=== PATIENT | female | born 1980 | race Two or more races ===

== ENCOUNTER 2019-03-04 20:57 | Inpatient (IN) | payer MEDICAID ==
[~2019-03-04] VITALS: Ht 182.9 cm; Wt 108.4 kg
[2019-03-04] MEDS ORDERED: ONDANSETRON HCL 4MG/2ML INJ IV STA (23:20)
[2019-03-04] MEDS ORDERED: SODIUM CHLORIDE 0.9% 1,000 ML IV ONE (23:20)
[2019-03-04] MEDS ORDERED: MORPHINE SULFATE 4 MG/ML CPJ (NOT FOR IM USE) IV STA (23:20)
[2019-03-04] MEDS ORDERED: ACETAMINOPHEN 325MG TABLET PO STA (23:20)
[2019-03-04] MEDS ORDERED: CEFTRIAXONE 1 G PREMIX 50 ML IV ONE (23:30)
[2019-03-04] MEDS ORDERED: AZITHROMYCIN 500 MG in DEXT 5% WATER 250 ML IV ONE (23:30)
[2019-03-04 23:54] LABS: BASOPHILS % 0.4 % (0.0-2.0); EOSINOPHILS % 1.9 % (0.0-5.0); HEMATOCRIT. 31.2 % (36.0-48.0); HEMOGLOBIN. 10.2 g/dL (12.0-16.0); LYMPHOCYTES % 21.4 % (20.0-50.0); MEAN CORPUSCULAR HEMOGLOBIN 27.3 pg (28.0-32.0); MEAN CORPUSCULAR VOLUME 83.8 fL (81.0-99.0); MEAN PLATELET VOLUME 7.1 fl (7.4-10.4); MONOCYTES % 4.2 % (2.0-8.0); NEUTROPHILS % 72.1 % (40.0-76.0); PLATELET 321 x1000/uL (130-400); RED BLOOD CELL COUNT 3.72 mill/uL (4.2-5.4)
[2019-03-05 00:08] LABS: CHLORIDE 103 mEq/L (98-107)
[2019-03-05 00:13] LABS: PROTHROMBIN TIME 9.9 sec (9.6-11.0)
[2019-03-05 03:21] LABS: CLARITY URINE CLEAR (CLEAR); COLOR URINE YELLOW (YELLOW); KETONES URINE NEGATIVE (NEGATIVE); LEUKOCYTE ESTERASE URINE 2+ (NEGATIVE); NITRITE URINE NEGATIVE (NEGATIVE); OCCULT BLOOD URINE NEGATIVE (NEGATIVE); PH URINE 6.5 (4.5-8.0); PROTEIN URINE NEGATIVE (NEGATIVE); SPECIFIC GRAVITY URINE 1.009 (1.005-1.030); UROBILINOGEN URINE 0.2 E.U./dL (0.2-1.0)
[2019-03-05 03:49] LABS: *BARBITURATES SCREEN URINE NEGATIVE (NEGATIVE)
[2019-03-05 03:50] LABS: *BENZODIAZEPINES SCREEN URINE NEGATIVE (NEGATIVE); *COCAINE SCREEN URINE NEGATIVE (NEGATIVE); CANNABINOID URINE SCREEN NEGATIVE (NEGATIVE); METHADONE URINE SCREEN NEGATIVE (NEGATIVE); PHENCYCLIDINE URINE SCREEN NEGATIVE (NEGATIVE)
[2019-03-05 03:53] LABS: *AMPHETAMINES SCREEN URINE PRESUMTIVE POSITIVE (NEGATIVE); OPIATES URINE SCREEN PRESUMTIVE POSITIVE (NEGATIVE)
[2019-03-05] MEDS: HYDROCODONE/ACETAMINOPHEN 5/325MG TABLET PO PRN ×3 (07:53→22:48)
[2019-03-05 08:00] VITALS: BP 107/74
[2019-03-05] MEDS ORDERED: CEFTRIAXONE 1 G PREMIX 50 ML IV SCH (09:00)
[2019-03-05] MEDS ORDERED: SODIUM CHLORIDE 0.9% 1,000 ML IV SCH (09:00)
[2019-03-05] MEDS ORDERED: ACETAMINOPHEN 325MG TABLET PO PRN (09:00)
[2019-03-05] MEDS ORDERED: ZOLPIDEM TARTRATE 5MG TABLET PO PRN (09:00)
[2019-03-05] MEDS: METHYLPREDNISOLONE SOD SUCC 40 MG/ML VIAL IV SCH ×2 (09:58→16:54)
[2019-03-05 10:23] VITALS: BP 107/74
[2019-03-05] MEDS ORDERED: OMEP20CA5 PO (11:03)
[2019-03-05] MEDS ORDERED: LOSA100T32 PO (11:03)
[2019-03-05] MEDS ORDERED: PRED-276 PO (11:03)
[2019-03-05] MEDS ORDERED: FURO-152 PO (11:03)
[2019-03-05] MEDS ORDERED: TRAM50TA3 PO (11:03)
[2019-03-05] MEDS ORDERED: HYDR200T80 PO (11:03)
[2019-03-05] MEDS ORDERED: CARV6.2548 PO (11:03)
[2019-03-05 12:00] VITALS: BP 118/74
[2019-03-05] MEDS ORDERED: MORPHINE SULFATE 2 MG/ML CPJ (NOT FOR IM USE) IV PRN (15:45)
[2019-03-05 16:00] VITALS: BP 133/90
[2019-03-05] MEDS ORDERED: TRAMADOL 50MG TABLET PO PRN (19:30)
[2019-03-05 20:00] VITALS: BP 121/76
[2019-03-05] MEDS: DICLOFENAC SODIUM 75MG DR (EC) TABLET PO SCH (22:16)
[2019-03-05] MEDS ORDERED: CEFTRIAXONE 1,000 MG in DEXTROSE 5% WATER 50 ML IV SCH (23:30)
[2019-03-06] VITALS: BP 128/78
[2019-03-06] MEDS: METHYLPREDNISOLONE SOD SUCC 40 MG/ML VIAL IV SCH ×2 (00:30→09:22)
[2019-03-06 04:00] VITALS: BP 140/85
[2019-03-06] MEDS ORDERED: OMEPRAZOLE 20MG CAPSULE EXTENDED RELEASE PO SCH (07:20)
[2019-03-06 08:01] LABS: BASOPHILS % 0.2 % (0.0-2.0); HEMATOCRIT. 32.9 % (36.0-48.0); HEMOGLOBIN. 10.9 g/dL (12.0-16.0); LYMPHOCYTES % 19.7 % (20.0-50.0); MEAN CORPUSCULAR HEMOGLOBIN 27.6 pg (28.0-32.0); MEAN CORPUSCULAR VOLUME 83.6 fL (81.0-99.0); MEAN PLATELET VOLUME 7.6 fl (7.4-10.4); MONOCYTES % 2.5 % (2.0-8.0); NEUTROPHILS % 77.6 % (40.0-76.0); PLATELET 338 x1000/uL (130-400); RED BLOOD CELL COUNT 3.93 mill/uL (4.2-5.4); RED CELL DISTRIBUTION WIDTH 16.7 % (11.6-14.6)
[2019-03-06 08:22] LABS: CHLORIDE 106 mEq/L (98-107)
[2019-03-06] MEDS ORDERED: FOLIC ACID 1MG TABLET PO SCH (09:00)
[2019-03-06] MEDS ORDERED: TRIAMCINOLONE ACETONIDE 0.1% CREAM 15GM TOP SCH (09:00)
[2019-03-06] MEDS ORDERED: LOSARTAN POTASSIUM 100 MG TABLET PO SCH (09:00)
[2019-03-06] MEDS ORDERED: CARVEDILOL 6.25 MG TABLET PO SCH (09:00)
[2019-03-06] MEDS ORDERED: HYDROXYCHLOROQUINE SULFATE 200MG TABLET PO SCH (09:00)
[2019-03-06] MEDS ORDERED: FUROSEMIDE 20MG TABLET PO SCH (09:00)
[2019-03-06] MEDS ORDERED: METHOTREXATE SODIUM 2 . 5MG TABLET PO SCH (09:00)
[2019-03-06 09:36] VITALS: BP 153/84
[2019-03-06] MEDS: DICLOFENAC SODIUM 75MG DR (EC) TABLET PO SCH (09:36)
[2019-03-06] MEDS: HYDROCODONE/ACETAMINOPHEN 5/325MG TABLET PO PRN (09:36)
[2019-03-07 13:10] LABS: G6PD QUANTITATIVE 347 (146-376)
[2019-03-07 15:06] LABS: COMPLEMENT C3 91 mg/dL (82-167)
[2019-03-07 17:10] LABS: ANTI-DNA DOUBLE STRANDED QUANT 17 IU/mL (0-9); RNP ANTIBODY 2.7 AI (0.0-0.9); SMITH ANTIBODY > 8.0 AI (0.0-0.9)
[2019-03-08 09:08] LABS: DRVVT LA 30.4 sec (0.0-47.0); PTT-LA 31.8 sec (0.0-51.9)
[2019-03-08 10:10] LABS: LUPUS ANTICOAG INTERPRETATION Comment: (.)
[2019-03-08 13:06] LABS: ANTI-CARDIOLIPIN AB IGA < 9 APL U/mL (0-11); ANTI-CARDIOLIPIN AB IGG < 9 GPL U/mL (0-14); ANTI-CARDIOLIPIN AB IGM < 9 MPL U/mL (0-12)
[2019-03-08 15:09] LABS: ANA IFA Negative (.); ANTI-MYELOPEROXIDASE AB < 9.0 U/mL (0.0-9.0); ANTI-PROTEINASE 3 ABS < 3.5 U/mL (0.0-3.5)
[2019-03-09 13:06] LABS: ATYPICAL P-ANCA <1:20 titer (Neg:<1:20); CYTOPLASMIC C-ANCA <1:20 titer (Neg:<1:20); PERINUCLEAR P-ANCA <1:20 titer (Neg:<1:20)
== END 2019-03-06 17:45 | disposition left against medical advice (07) | DRG 720 ==
LOC: ER 20:57 → 6WST 03-05 05:29 → EDBEDREQ 03-05 05:33 → EDBEDREQSVC 03-05 05:33 → EDBEDREQTM 03-05 05:33 → ENRESERV 03-05 07:32
PROVIDERS: ADMIT Internal Medicine; ATTEND Internal Medicine
DX: A41.9 Sepsis, unspecified organism (principal); M32.9 Systemic lupus erythematosus, unspecified; E44.0 Moderate protein-calorie malnutrition; E87.1 Hypo-osmolality and hyponatremia; I11.0 Hypertensive heart disease with heart failure; I50.9 Heart failure, unspecified; D64.9 Anemia, unspecified; D72.810 Lymphocytopenia; E66.9 Obesity, unspecified; F15.90 Other stimulant use, unspecified, uncomplicated; F17.210 Nicotine dependence, cigarettes, uncomplicated; J44.9 Chronic obstructive pulmonary disease, unspecified; M13.0 Polyarthritis, unspecified; N39.0 Urinary tract infection, site not specified; Z79.52 Long term (current) use of systemic steroids; Z90.49 Acquired absence of other specified parts of digestive tract; Z68.32 Body mass index [BMI] 32.0-32.9, adult; Z98.891 History of uterine scar from previous surgery; Z71.3 Dietary counseling and surveillance; Z71.6 Tobacco abuse counseling
CPT/HCPCS: 36415; 71045; 80048; 80061; 80305; 81003; 82955; 83520; 83605; 84145; 84443; 84484; 85041; 85613; 85651; 85732; 86147; 86160; 86225; 86235; 86256; 86592; 86780; 93005; 93306; 93970; 99285; J0456; J0696; J2270; J2405; J2920; J7030; J7060; J8610